=== PATIENT | female | born 1960 | race Caucasian/White ===

== ENCOUNTER 2021-09-30 12:35 | Outpatient (REF) | payer OTHER, SELFPAY ==
--- NOTE | ~2021-09-30 | XR_ITS ---
EXAMINATION: XR ANKLE, LEFT XR FOOT, LEFT CLINICAL INFORMATION: Pain in the left foot. Muscle strain. COMPARISON: None TECHNIQUE: AP, lateral, and mortise views of the left ankle and AP, lateral, and oblique views of the left foot. FINDINGS: LEFT ANKLE: Mild soft tissue swelling at the left ankle. No fracture or malalignment. Bone mineralization is normal. Small marginal osteophytes at the talocrural joint. No appreciable joint effusion. Moderate sized enthesopathic spur is present at the plantar fascial origin on the calcaneus. LEFT FOOT: Mild osteoarthritis in the midfoot at the level of the tarsometatarsal joints. No fracture or malalignment. Bone mineralization is normal. Minimal osteoarthritis of the 1st MTP joint. Soft tissues are unremarkable. XR/XR foot LT 2V IMPRESSION: 1. 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 2. No acute osseous findings.
--- NOTE | ~2021-09-30 | XR_ITS ---
EXAMINATION: XR ANKLE, LEFT XR FOOT, LEFT CLINICAL INFORMATION: Pain in the left foot. Muscle strain. COMPARISON: None TECHNIQUE: AP, lateral, and mortise views of the left ankle and AP, lateral, and oblique views of the left foot. FINDINGS: LEFT ANKLE: Mild soft tissue swelling at the left ankle. No fracture or malalignment. Bone mineralization is normal. Small marginal osteophytes at the talocrural joint. No appreciable joint effusion. Moderate sized enthesopathic spur is present at the plantar fascial origin on the calcaneus. LEFT FOOT: Mild osteoarthritis in the midfoot at the level of the tarsometatarsal joints. No fracture or malalignment. Bone mineralization is normal. Minimal osteoarthritis of the 1st MTP joint. Soft tissues are unremarkable. XR/XR ankle LT 2V IMPRESSION: 1. 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 2. No acute osseous findings.
== END 2021-09-30 12:36 | disposition home or self-care (01) ==
LOC: HO.XRAY 12:35
PROVIDERS: PCP Internal Medicine; Visit Provider Hospitalist
DX: S96.912A Strain of unspecified muscle and tendon at ankle and foot level, left foot, initial encounter (principal); M79.672 Pain in left foot
CPT/HCPCS: 73600; 73620

== ENCOUNTER 2022-05-27 10:47 | Emergency (ER) | payer OTHER, SELFPAY ==
--- NOTE | 2022-05-27 | ECG_ITS ---
Test Reason : dizziness Blood Pressure : / mmHG Vent. Rate : 076 BPM Atrial Rate : 076 BPM P-R Int : 156 ms QRS Dur : 088 ms QT Int : 434 ms P-R-T Axes : 075 050 035 degrees QTc Int : 488 ms Normal sinus rhythm Nonspecific ST and T wave abnormality Abnormal ECG When compared with ECG of 23-SEP-2016 16:45, T wave inversion now evident in Inferior leads Nonspecific T wave abnormality now evident in Lateral leads Referred By: Generic ED Physician Electronically Signed By:Aniket Pastrana
--- NOTE | ~2022-05-27 | CT_ITS ---
EXAMINATION: CT head/brain wo con CLINICAL INFORMATION: Reason for Exam DIZZINESS. FALL COMPARISON: None. TECHNIQUE: Contiguous axial imaging was performed from the skull base to vertex without intravenous contrast. Sagittal and coronal reformatted images were obtained. This CT examination was performed using dose optimization techniques as appropriate, variously including the following: * Automated exposure control * Adjustment of mA and/or kV according to patient size (this includes techniques or standardized protocols for targeted exams where dose is matched to indication/reason for exam; i.e. extremities or head) Use of iterative reconstruction technique DLP: 674 mGy-cm FINDINGS: No acute osseous or soft tissue abnormality. The mastoid air cells and visualized portions of the paranasal sinuses are well aerated. There is no evidence of acute intracranial hemorrhage or territorial infarction. No abnormal mass effect or midline shift is seen. Archuleta to white matter differentiation is well preserved. No extra-axial fluid collections are identified. No hydrocephalus. No significant volume loss. There is no abnormal attenuation within the brain parenchyma. CT/CT head/brain wo con IMPRESSION: No acute intracranial abnormality including hemorrhage, mass effect, hydrocephalus, or acute territorial edematous infarction.
[2022-05-27 10:56] VITALS: BP 170/94; PULSE 91; O2SAT 98
[2022-05-27 11:16] VITALS: BP 185/83; PULSE 84; RESP 19; TEMP 36.6; O2SAT 100; BMI 32.9
[2022-05-27 11:55] LABS: MANUAL DIFF FLAG NO
[2022-05-27 11:56] LABS: Basophils Percent Auto 0.4 % (0-2); Eosinophils Absolute Auto 0.1 X10*3/uL (0.0-0.4); Eosinophils Percent Auto 0.7 % (0-4); Hemoglobin 14.7 g/dl (12.0-16.0); Imm Gran Abs Auto 0.01 X10*3/uL (0.00-0.03); Imm Gran Pct Auto 0.1 % (0.0-0.4); Lymphocytes Absolute Auto 1.8 X10*3/uL (1.2-4.9); Lymphocytes Percent Auto 22.6 % (20-40); Mean Corpuscular HGB Conc 33.4 g/dl (31.0-35.0); Mean Corpuscular Hemoglobin 32.2 pg (27.0-33.0); Mean Corpuscular Volume 96.3 fL (80.0-98.0); Mean Platelet Volume 8.5 fL (9.4-12.3); Monocytes Absolute Auto 0.4 X10*3/uL (0.1-1.2); Monocytes Percent Auto 5.3 % (2-11); Neutrophils Absolute Auto 5.8 x10*3/uL (2.0-8.3); Neutrophils Percent Auto 70.9 % (45-73); Platelet Count 243 X10*3/uL (160-400); Red Blood Count 4.57 X10*6/uL (4.20-5.50); Red Cell Distribution Width 12.4 % (11.0-16.0); White Blood Count 8.2 X10*3/uL (4.8-10.8)
[2022-05-27 12:10] LABS: Anion Gap 13 (12-20); Blood Urea Nitrogen 13 mg/dL (9-16); Calcium 9.7 mg/dL (8.4-10.2); Carbon Dioxide 26 mmol/L (22-29); Chloride 108 mmol/L (96-108); Creatinine Clr Calc Pharmacy 61.3; Estimated Glomerular Filt Rate > 60; Glucose Random 188 mg/dL (60-115); Potassium 4.9 mmol/L (3.3-5.1); Sodium 142 mmol/L (135-145)
[2022-05-27] MEDS: Ondansetron ODT 4 MG TAB.RAPDIS TRANSLINGU (20:35)
[2022-05-27] MEDS: Meclizine HCl 25 MG TABLET 50 MG PO (21:35)
[2022-05-27 21:37] LABS: INTERNATIONAL NORM RATIO 0.9 (0.9-1.1); Prothrombin Time 10.6 SEC (10.0-13.1)
[2022-05-27 21:40] LABS: Partial Thromboplastin Time 33.6 SEC (24.1-38.0)
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
[2022-05-27] MEDS: Acetaminophen 325 MG TABLET 975 MG PO (21:51)
== END 2022-05-27 22:43 | disposition left against medical advice (07) ==
PROVIDERS: Physician Assistant; Emergency Provider Internal Medicine; PCP Physician Assistant Medical
DX: R42 Dizziness and giddiness (principal); Z79.899 Other long term (current) drug therapy
CPT/HCPCS: 36415; 70450; 80048; 84484; 85025; 85610; 85730; 93005; 99284

== ENCOUNTER 2025-09-25 10:47 | Outpatient (AMB) | payer MEDICARE, MEDICAID, SELFPAY ==
--- NOTE | 2025-09-25 10:53 | A.PHYSOV ---
Vital Signs 09/25/25 10:58 Height 5 ft 2 in Weight 169 lb BMI 30.9 Intake Visit Reasons: (call if sooner)TO DISCUSS OTHER OPTION Intake Note: Patient is a 65 year female in office today to discuss other treatment options. 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 The pain initially localized to one side but recently developed on the opposite side after lifting a 40-pound bag of dog food. The patient received an injection in April, which provided relief for about a week. The current pain level is reported as 3 to 4 out of 10, which is livable but annoying. The patient has tried various treatments including physical therapy, career orientation teacher, medications, and injections, but these have not provided long-term relief. The patient is considering acupuncture as a new treatment option, as it is the only modality not yet tried. The patient has a belt for support and has been advised to avoid lifting heavy objects. Patient reports short-term relief for left SI joint injection and left L4 TFE. Pain Description - Onset: Pain initially on one side, now on both sides after lifting a heavy object - Quality: Annoying but livable - Severity: 3 to 4 out of 10 - Exacerbating factors: Lifting heavy objects - Relieving factors: Injection provided temporary relief PFSH Surgical History Hx of CABG History of Social History Alcohol intake: current Alcohol intake frequency: holidays/special occasions only Patient Tobacco Use Status: Former Tobacco user Substance Use Type: Marijuana Current occupational status: unemployed Review of Systems Narrative Review of Systems - Musculoskeletal: Reports pain in sacroiliac joint, denies other joint pain Physical Exam Exam Exam: Physical Exam Lumbar Spine: Examination of her lumbar spine, she is tender to lower lumbar facets as well as bilateral SI joint palpation. She has full range of motion of her lumbar spinal pain. She does have with facet loading. Special Tests: Lhermittes sign was negative Heel Toe walk is normal Left straight leg raise: Negative Right straight leg raise: Negative Special tests Fatoumata test is positive left Ganslen's test is positive left SI Joint compression test positive left Dorys test negative Piriformis stretch is negative Lower Extremities: Full range of motion bilateral lower extremities. No calf pain or edema. Neuro: Sensation: Intact to lower extremities bilaterally Strength L2 (Psoas): 5/5 on the left and 5/5 on the right. L3 (Quads): 5/5 on the left and 5/5 on the right. L4 (Ant tibialis): 5/5 on the left and 5/5 on the right. L5 (EHL) 5/5 on the left and 5/5 on the right. S1 (Gastroc): 5/5 on the left and 5/5 on the right. DTR L4: (Patellar) Left 2 Right 2 S1: (Achilles) Left 2 Right 2 Babinski Downgoing No pathologic clonus. No involuntary movement. Vital Signs: BMI result Body Mass Index 30.9 Assessment & Plan Assessment & Plan (1) Sacroiliitis: Code(s): M46.1 - Sacroiliitis, not elsewhere classified Category: Medical (2) Vertebrogenic low back pain: Code(s): M54.51 - Vertebrogenic low back pain Category: Medical Plan Pain Management - Affect: Pain is annoying but livable - Analgesia: Current pain level is 3 to 4 out of 10; considering acupuncture and meloxicam - Adverse Effects: None reported - Activities of Daily Living: Pain is livable but annoying, advised to avoid lifting heavy objects - Aberrant Drug Related Behaviors: None reported Plan Patient was informed and verbally consented to the use of an ambient scribe for clinic note documentation during this visit. 1. Sacroiliac Joint Dysfunction The patient is advised to consider acupuncture as a treatment option, as it has not been tried yet and may provide relief. The use of a supportive belt is recommended, and the patient is advised to avoid lifting heavy objects to prevent exacerbation of symptoms. Meloxicam may be used as needed for pain management, with the option to return to ibuprofen or Tylenol if necessary. 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 Patient has seen Neurosurgery referred to our department. Patient will continue conservative treatment. Follow-up with our office as needed post acupuncture. Thank you for allowing me to participate in the care of your patient. Coding Level of Care Code Tele Est Pt Level 3 (16544) Diagnoses Sacroiliitis M46.1 Vertebrogenic low back pain M54.51
[2025-09-25 10:58] VITALS: BMI 30.9
== END 2025-09-25 11:25 | disposition home or self-care (01) ==
LOC: HO.HPHYS 10:48
PROVIDERS: PCP Family Medicine; Visit Provider Physician Assistant
DX: M46.1 Sacroiliitis, not elsewhere classified (principal); M54.51 Vertebrogenic low back pain
CPT/HCPCS: 99213

== ENCOUNTER → 2025-09-25 10:47 | Outpatient (BNVA) | payer MEDICARE, OTHER, SELFPAY | PROVIDERS: PCP Family Medicine; Visit Provider Physician Assistant | DX: M46.1 Sacroiliitis, not elsewhere classified (principal); M54.51 Vertebrogenic low back pain | CPT/HCPCS: 99212 ==